=== PATIENT | male | born 1965 | race Caucasian/White ===

== ENCOUNTER 2017-12-09 14:29 | Inpatient (IN) | payer MEDICARE, MEDICAID ==
--- NOTE | 2017-12-09 14:47 | ED Physician Chart ---
ED Chief Complaint/HPI - Patient Information Date Seen:: 12/09/17 Time Seen:: 14:35 Chief Complaint:: verbally aggressive History of Present Illness:: Patient was reportedly verbally aggressive in his alf facility. He is sent here for medical clearance to [facility]. Historian:: Patient, EMS Review:: Transfer documents Reviewed ED Review of Systems - Review of Systems General/Constitutional: No fever, No chills Skin: No skin lesions Head: No headache Eyes: No loss of vision ENT: No earache Neck: No neck pain, No swelling Cardio Vascular: No chest pain, No palpitations Pulmonary: No SOB GI: No nausea, No vomiting, No diarrhea G/U: No dysuria, No frequency, No hematuria Musculoskeletal: No bone or joint pain Endocrine: No polyuria, No polydipsia Psychiatric: Prior psych history Hematopoietic: No bruising Allergic/Immuno: No urticaria Neurological: No syncope, No focal symptoms ED Past Medical History - Past Medical History Past Medical History: HTN, Asthma/COPD, Seizures, Other (autism; paranoid schizophrenia; anxiety) Family History: None Social History: Non Smoker, Care Facility Surgical History: Hernia Psychiatricy History: Schizophrenia, Other (autism) Medication: Reviewed Family Medical History - Family Member Mother History Unknown: Yes Ethnicity: Non- Living Status: Unknown ED Physical Exam - Physical Examination Other Gen/Cons comments:: Mildly chronically ill-appearing; alert and oriented to the correct year but not the month Head: Atraumatic Eyes: Lids, conjuctiva normal, PERRL Skin: Nl inspection, No rash, No skin lesions, No ecchymosis ENMT: External ears, nose nl, TM canals nl, Nasal exam nl, Lips, teeth, gums nl , Oropharynx nl Neck: No nuchal rigidity Respiratory: Nl effort/Exclusion, Clear to Auscultation Cardio Vascular: RRR, No murmur, gallop, rubs, NL S1 S2 GI: No tenderness/rebounding/guarding, No organomegaly, No hernia, Normal BS's Extremities: No edema Neuro/Psych: No focal deficits ED Labs/Radiology/EKG Results - Radiology Results Results: Abnormal Lab Results 12/09/17 12/09/17 12/09/17 15:08 15:08 15:08 WBC 6.3 RBC 4.33 Hgb 14.1 Hct 41.2 MCV 95.3 MCH 32.7 H MCHC Differential 34.3 RDW 12.0 Plt Count 194 MPV 7.6 Neutrophils % 47.5 Lymphocytes % 34.7 Monocytes % 12.6 H Eosinophils % 2.8 Basophils % 2.4 H Sodium 132 L Potassium 4.2 Chloride 104 Carbon Dioxide 17.0 L Anion Gap 15.2 BUN 13 Creatinine 0.7 Est GFR ( Amer) > 60.0 Est GFR (Non-Af Amer) > 60.0 BUN/Creatinine Ratio 18.6 Glucose 176 H Calcium 9.0 Total Bilirubin 0.3 AST 29 ALT 37 Alkaline Phosphatase 44 Total Protein 6.4 Albumin 3.9 L Globulin 2.5 Albumin/Globulin Ratio 1.6 Triglycerides 538 H Cholesterol 172 LDL Cholesterol Direct 93 HDL Cholesterol 28 TSH 1.20 Valproic Acid 12/09/17 15:30 WBC RBC Hgb Hct MCV MCH MCHC Differential RDW Plt Count MPV Neutrophils % Lymphocytes % Monocytes % Eosinophils % Basophils % Sodium Potassium Chloride Carbon Dioxide Anion Gap BUN Creatinine Est GFR ( Amer) Est GFR (Non-Af Amer) BUN/Creatinine Ratio Glucose Calcium Total Bilirubin AST ALT Alkaline Phosphatase Total Protein Albumin Globulin Albumin/Globulin Ratio Triglycerides Cholesterol LDL Cholesterol Direct HDL Cholesterol TSH Valproic Acid 69.0 - EKG Interpretations Rate & Rhythm: normal sinus rhythm with a rate of 72 [place]: normal axis Comments:: T wave flattening ED Septic Shock - . Is Septic Shock (SBP<90, OR Lactate>4 mmol\L) present?: No ED Reassessment (Disposition) - Reassessment Reassessment Condition:: Unchanged - Diagnosis Diagnosis:: Aggressive behavior; autism; paranoid schizophrenia - Patient Disposition Admitted to:: [facility] Admitting Medical Physician:: Bri Johnson Admitting Psych Physician:: Collin Membreno Condition at Disposition:: Stable, Unchanged
[2017-12-09 15:13] LABS: % BASOPHILS 2.4 % (0.0-2.0); % EOSINOPHILS 2.8 % (0.0-5.0); % LYMPHOCYTES 34.7 % (20.0-50.0); % MONOCYTES 12.6 % (2.0-10.0); % NEUTROPHILS 47.5 % (40.0-80.0); BASOPHILE ABSOLUTE 0.2 Th/cumm (0-0.2); EOSINOPHILE ABSOLUTE 0.2 Th/cmm (0.1-0.4); HEMATOCRIT 41.2 % (41.0-60); HEMOGLOBIN 14.1 gm/dL (12-16); LYMPHOCYTE ABSOLUTE 2.2 Th/cmm (1.5-3.0); MEAN CELL VOLUME 95.3 fl (80-99); MEAN CORPUSCULAR HEMOGLOBIN 32.7 pg (26.0-30.0); MEAN CORPUSCULAR HGB CONC 34.3 pg (28.0-36.0); MEAN PLATELET VOLUME 7.6 fl; MONOCYTE ABSOLUTE 0.8 Th/cmm (0.3-1.0); NEUTROPHILE ABSOLUTE 2.9 Th/cmm (1.8-8.0); PLATELET COUNT 194 Th/cmm (150-400); RED BLOOD COUNT 4.33 Mil/cmm (4.30-5.70); WHITE BLOOD COUNT 6.3 Th/cmm (4.8-10.8)
[2017-12-09 15:38] LABS: ALB/GLOB RATIO 1.6 (1.0-1.8); ALBUMIN 3.9 gm/dL (4.2-5.5); ALKALINE PHOSPHATASE 44 U/L (34-104); ANION GAP 15.2 (7.0-16.0); BILIRUBIN,TOTAL 0.3 mg/dL (0.3-1.0); BUN - UREA NITROGEN 13 mg/dL (7-25); CHLORIDE 104 mEq/L (98-107); CHOLESTEROL 172 mg/dL (<200); CREATININE - SERUM 0.7 mg/dL (0.7-1.3); GFR AFRICAN-AMERICAN > 60.0 ml/min (>90); GFR NON AFRICAN-AMERICAN > 60.0 ml/min; GLUCOSE 176 mg/dL (70-105); HDL -HIGH DENSITY LIPOPROTEIN 28 mg/dL (23-92); POTASSIUM SERUM 4.2 mEq/L (3.5-5.1); SGOT 29 U/L (13-39); SGPT/ALT 37 U/L (7-52); SODIUM SERUM 132 mEq/L (136-145); TOTAL PROTEIN,SERUM 6.4 gm/dL (6.0-8.3); TRIGLYCERIDES 538 mg/dL (<150)
[2017-12-09] MEDS ORDERED: Maalox 30 mL Cup PO PRN (18:33)
[2017-12-09] MEDS ORDERED: Magnesium Hydroxide (MOM) 30 mL UDC PO PRN (18:33)
[2017-12-09] MEDS ORDERED: Non-Formulary Item 1 EA (Albuterol Sulfate [Proair Respiclick] 90 MCG) IH PRN (20:27)
[2017-12-09] MEDS ORDERED: Fleet Enema 135 mL RC PRN (20:29)
[2017-12-09 20:48] VITALS: BP 95/66
[2017-12-09] MEDS: Lactulose 10 Gm/15 mL 30mL UDC PO SCH (21:00)
[2017-12-09] MEDS ORDERED: Non-Formulary Item 1 EA (Lactulose [Lactulose] 10 GM) PO SCH (21:00)
[2017-12-09] MEDS ORDERED: Albuterol Nebulizer 2.5mg/3mL HHN PRN (21:33)
--- NOTE | 2017-12-09 22:36 | History & Physical ---
ADMIT DATE: 12/09/2017 CHIEF COMPLAINT: Agitation and aggressive behavior. HISTORY OF PRESENT ILLNESS: A 52-year-old male with past medical history significant for schizophrenia and autistic disorder, presents from long term after he has increased agitation and aggressive towards the staff. The patient is a poor historian. Denies any medical complaints. PAST MEDICAL HISTORY: The patient has history of COPD, autistic disorder, hypertension, seizure disorder, paranoid schizophrenia, and anxiety disorder. MEDICATIONS: The patient is on albuterol, atenolol, benazepril, clozapine, Colace, Depakote, Dulcolax, famotidine, lactulose, milk of magnesia, Mylanta, Tylenol as needed. ALLERGIES: The patient allergic to CARROTS, PENICILLIN AND HALOPERIDOL. SOCIAL HISTORY: No known tobacco, alcohol or illicit drug use. The patient is a resident of [facility]. FAMILY HISTORY: Noncontributory. REVIEW OF SYSTEMS: IMMUNOLOGIC: No recurrent infection. CARDIOVASCULAR: The patient has hypertension. GASTROINTESTINAL: Denies nausea, vomiting or diarrhea. ENDOCRINE: No diabetes or thyroid disorder. NEUROLOGIC: The patient has cognitive impairments. Has seizure disorder. No stroke. HEMATOLOGIC: No bleeding or clotting disorder. PHYSICAL EXAMINATION: GENERAL: The patient is awake and alert, no acute distress. The patient has leftward gaze. HEENT: Pupils equally round, anicteric sclerae. Mouth: The patient has multiple cavities and poor dentition. NECK: Supple. No JVD, mass or bruit. LUNGS: Clear to auscultation. HEART: S1, S2. Regular rate and rhythm. ABDOMEN: Soft, nontender, positive bowel sounds. EXTREMITIES: No clubbing, cyanosis, or edema. NEUROLOGIC: The patient moves all extremities equally. He appears to have visual impairment with difficulty following with gaze and tracking. Also does not appear to recognize colors, unclear whether it is related to his intellectual impairment. LABORATORY DATA: Sodium is 132, potassium 4.2, glucose 178, triglycerides are 538, albumin is 3.9. IMPRESSION: 1. Paranoid schizophrenia. 2. Anxiety disorder. 3. Autistic disorder. 4. Intellectual impairment. 5. Seizure disorder. 6. Chronic obstructive pulmonary disease. 7. Hypertension. 8. Hypertriglyceridemia. PLAN: The patient has been admitted to Geropsych Unit. We will continue the patient's home medications as far as elevated sugar and triglycerides. We will continue to monitor and rule out diabetes. The patient is medically cleared to participate in activities. JOB# [id number]
[2017-12-10] MEDS ORDERED: BENAZEPRIL HCL 5 MG PO SCH (09:00)
[2017-12-10] MEDS ORDERED: Non-Formulary Item 1 EA (Atenolol [Atenolol] 50 MG) PO SCH (09:00)
[2017-12-10] MEDS: Multivitamin Tab PO SCH (09:03)
--- NOTE | 2017-12-10 13:23 | Psychiatric Evaluation ---
DATE OF SERVICE: PSYCHIATRIC INITIAL EVALUATION AND MENTAL STATUS EXAM PATIENT'S AGE: 52-year-old. SEX: Male. PHYSICIAN: Dr. Membreno. CHIEF COMPLAINT: Agitation and aggressive behavior. HISTORY OF PRESENT ILLNESS: The patient is a 52-year-old male who was transferred from [facility] because of increased agitation and aggressive behavior. The patient has been extremely agitated and has been extremely aggressive. The patient also has been having difficulty with controlling his temper and difficult following staff directions. He also has been easily agitated and irritable and also has been paranoid. Because the staff was not able to handle his behavior, he was transferred to [facility]. PAST PSYCHIATRIC HISTORY: The patient has long history of schizophrenia. PAST MEDICAL HISTORY: The patient has history of muscle wasting as well as hypertension, seizure disorder, COPD, GERD, and autistic spectrum according to the admission report. SOCIAL HISTORY: The patient lives in [facility]. No known alcohol or drug use. No known legal issues or abuse issues. ALLERGIES: HALDOL, PENICILLIN AND CARROTS. MENTAL STATUS EXAMINATION: The patient appears slightly older than stated age. Disheveled. Anxious. Irritable mood. Thought processes are circumstantial with flight of ideas. The patient denies auditory or visual hallucinations, but seems to be suspicious and paranoid. The patient denies any suicidal or homicidal ideations. The patient is alert and oriented to time, place, person, and situation. Intact immediate, recent and remote memories. Poor insight and poor judgment. Seems to be of average intelligence based on his verbal ability. ASSESSMENT: PRIMARY DIAGNOSIS: Chronic paranoid schizophrenia with acute exacerbation. MEDICAL DIAGNOSES: Hypertension. Seizure disorder. Atrophy and muscle wasting. Gastroesophageal reflux disease. Chronic obstructive pulmonary disease. TREATMENT PLAN: We will monitor his behavior and his condition closely. We will work on behavioral modification. Also, we will work on adjusting psychotropic medications. ESTIMATED LENGTH OF STAY: 5-7 days. THE PATIENT'S STRENGTHS AND WEAKNESSES: The patient's strength is not clear at this time except he can return to [facility] and have supportive staff there. Weaknesses is his poor impulse control and agitation and paranoia. AFTER DISCHARGE PLAN: The patient will return to [facility] with plans for outpatient treatment and follow up there. CRITERIA FOR DISCHARGE: Better impulse control and stabilizing psychotropic medications and establish outpatient treatment plans. [facility]# [id number]
[2017-12-10] MEDS: Lactulose 10 Gm/15 mL 30mL UDC PO SCH (20:50)
--- NOTE | 2017-12-10 21:56 | History & Physical ---
ADMIT DATE: PATIENT'S IDENTIFICATION: A 52-year-old male. REQUESTING PHYSICIAN: Dr. Collin Membreno. HISTORY OF PRESENT ILLNESS: A 52-year-old male with significant psychiatric history including autistic disorder, discharged to halfway at [place], has a significant medical problem with COPD, hypertension, seizure disorder, brought into the Emergency Room at [facility] for aggressive behavioral evaluation. After being evaluated, the patient is admitted to the hospital for further treatment. The patient is admitted under Dr. Collin Membreno's care. PAST MEDICAL HISTORY: Remarkable for: 1. Hypertension. 2. Seizure disorder. 3. DJD. 4. Psychotic disorder. 5. Autism. 6. COPD. MEDICATIONS AT HOME: 1. Albuterol. 2. Atenolol. 3. Benazepril. 4. Clonazepam. 5. Depakote. 6. Pepcid. 7. Lactulose. 8. Mylanta. 9. Tylenol. ALLERGIES: THE PATIENT IS ALLERGIC TO PENICILLIN AND HALDOL. SOCIAL HISTORY: The patient resides in a halfway. No history of smoking cigarette, alcohol, or drug use. FAMILY HISTORY: Unavailable. REVIEW OF SYSTEMS: Unable to obtain due to current medical condition. PHYSICAL EXAMINATION: GENERAL: The patient is alert, awake, lying in the bed without any acute distress. VITAL SIGNS: Temperature 98, pulse 74, respiratory rate 18, blood pressure 130/70. HEENT: No facial asymmetry. Normocephalic, atraumatic. Pupils react to light. Tongue was pink and coated. No oral lesion, no exudate. No sinus tenderness. NECK: Supple, no JVD. No hepatojugular reflex. No lymphadenopathy, thyromegaly, or carotid bruit. HEART: Both heart sounds are regular. No S3, no S4, no murmur. CHEST AND LUNGS: Equal in expansion, no expiratory wheezing. ABDOMEN: Soft. No guarding, no rigidity. Liver and spleen palpable. No palpable mass. EXTREMITIES: No edema, no cyanosis. Peripheral pulses are +1. NEUROLOGIC: Alert, awake, follows simple commands. Moving upper and lower extremities without any difficulty. The patient has a significant amount of intellectual impairment noted. AVAILABLE DIAGNOSTIC DATA: Has been reviewed. CLINICAL IMPRESSION: 1. Chronic obstructive pulmonary disease. 2. Seizure disorder. 3. Hypertension. 4. Gastroesophageal reflux disease. 5. Psychotic disorder. 6. Intellectual disability. 7. Hypertriglyceridemia. PLAN: 1. Seizure medication. 2. Seizure precaution. 3. P.r.n. inhalation therapy. 4. Antihypertensive medicine. 5. Symptoms management. 6. General nursing care. 7. Fall precaution. 8. Nutritional support. 9. Psych evaluation and management deferred to psychiatrist. 10. Care plan reviewed and discussed with staff. JOB# [id number]
[2017-12-11] MEDS: Multivitamin Tab PO SCH (08:49)
--- NOTE | 2017-12-11 10:20 | Progress Notes ---
DATE: 12/11/2017 SUBJECTIVE: Chart reviewed and also discussed the patient's condition with the staff and reviewed records and labs. The patient is still severely irritable. The patient also is agitated and still needs redirections. The patient also is still rambling and thought processes are disorganized. Otherwise, the patient is compliant with taking his medications with no side effects of medications. ASSESSMENT: The patient is still psychotic and needs close monitoring. TREATMENT PLAN: Continue to monitor his behavior and his condition closely. Also, continue adjusting psychotropic medications and follow up closely. JOB# [id number]
[2017-12-11] MEDS: Lactulose 10 Gm/15 mL 30mL UDC PO SCH (20:48)
--- NOTE | 2017-12-12 03:23 | Progress Notes ---
DATE: 12/11/2017 SUBJECTIVE: The patient was seen and examined. The patient is lying in the bed. The patient is awake, verbally responsive without any acute distress. Compliant with his medication. The patient remained hemodynamically stable. PHYSICAL EXAMINATION: VITAL SIGNS: Temperature of 97.6, pulse 60, respiratory rate 18, blood pressure 126/82. HEENT: No facial asymmetry. NECK: Supple, no JVD. HEART: Regular. CHEST AND LUNGS: Equal in expansion, no expiratory wheezing. ABDOMEN: Soft. EXTREMITIES: No edema. CLINICAL IMPRESSION: 1. Chronic obstructive pulmonary disease. 2. Seizure disorder. 3. Psychotic disorder. 4. Degenerative joint disease. 5. Hypertension. PLAN: 1. Continue current medication as prescribed. 2. Provide seizure medication and seizure precautions. 3. Antihypertensive medicine 4. Symptoms management. 5. Fall precautions. 6. Nutritional support. 7. Psychiatric evaluation and management deferred to psychiatrist. 8. Care plan reviewed and discussed. JOB# [id number]
[2017-12-12] MEDS: Multivitamin Tab PO SCH (10:58)
[2017-12-12] MEDS: Lactulose 10 Gm/15 mL 30mL UDC PO SCH (20:37)
--- NOTE | 2017-12-13 01:50 | Progress Notes ---
DATE: 12/12/2017 SUBJECTIVE: Chart reviewed and the patient interviewed. Also, discussed the patient's condition with the staff and reviewed records and labs. The patient's affect was slightly brighter. The patient seems to be calmer. The patient is still easily agitated and easily irritable. The patient also is still at times, hitting himself. Otherwise, the patient is easier to redirect him and he is compliant with taking his medications with no side effects. ASSESSMENT: The patient is still irritable and agitated. TREATMENT PLAN: Continue monitoring his behavior and his condition closely. Also, continue adjusting psychotropic medications. Also, continue to work on his irritability and behavioral modification. JOB# [id number]
[2017-12-13] MEDS: Multivitamin Tab PO SCH (15:45)
[2017-12-13] MEDS: Lactulose 10 Gm/15 mL 30mL UDC PO SCH (21:07)
[2017-12-14] MEDS: Multivitamin Tab PO SCH (08:01)
--- NOTE | 2017-12-14 17:32 | Progress Notes ---
DATE: 12/13/2017 SUBJECTIVE: The patient seen and examined. The patient is lying in the bed. No new event. Discussed with nursing staff about their concern. OBJECTIVE: VITAL SIGNS: Temperature 97.6, pulse is 100, respiratory rate is 20, blood pressure 137/80. HEENT: No facial asymmetry. NECK: Supple. No JVD, no hepatojugular reflux lymphadenopathy. HEART: Both heart sounds are regular. CHEST AND LUNGS: Equal in expansion, no expiratory wheezing. ABDOMEN: Soft. No guarding or rigidity. Bowel sounds present and normal. EXTREMITIES: No edema. CLINICAL IMPRESSION: 1. Seizure. 2. Hypertension. 3. Psychiatric disorder. 4. Hyperlipidemia. 5. Chronic obstructive pulmonary disease. 6. Intellectual disability. PLAN: 1. Seizure medication. 2. Seizure precaution. 3. Antihypertensive medicine 4. H2 ke. 5. Psychotic evaluation and management deferred to psychiatrist. 6. General nursing care. 7. Nutritional support. 8. Care plan reviewed and discussed with staff. JOB# [id number]
--- NOTE | 2017-12-14 18:18 | Progress Notes ---
DATE: 12/14/2017 SUBJECTIVE: Chart reviewed and the patient interviewed. Also, discussed the patient's condition with the staff and reviewed records and labs. The patient is still confused and is still forgetful. The patient also still has episodes of yelling and screaming. He also is still restless and he still has difficulty following directions. Otherwise, the patient is compliant with taking his medications with no side effect of medications. ASSESSMENT: The patient is still psychotic and agitated. TREATMENT PLAN: Continue to monitor his behavior and his condition closely and continue adjusting psychotropic medications and followup. JOB# [id number]
--- NOTE | 2017-12-14 19:52 | Progress Notes ---
DATE: SUBJECTIVE: Chart reviewed and the patient interviewed. I also discussed the patient's condition with the staff and reviewed records and labs. The patient is still nervous and tense. The patient also is still agitated and easily irritable. The patient also is interacting with staff and with others. The patient also has difficulty coping. He needs lots of redirections. Otherwise, the patient is compliant with medications with no side effects. ASSESSMENT: The patient is still psychotic and depressed. TREATMENT PLAN: Continue monitoring his behavior and his condition and continue adjusting the psychotropic medications and working on discharge plans. JOB# [id number]
[2017-12-14] MEDS: Lactulose 10 Gm/15 mL 30mL UDC PO SCH (20:23)
[2017-12-15] MEDS: Multivitamin Tab PO SCH (08:33)
--- NOTE | 2017-12-16 23:39 | Discharge Summary ---
DATE OF DISCHARGE: 12/15/2017 FINAL DIAGNOSIS AND PRIMARY DIAGNOSIS: Chronic paranoid schizophrenia with acute exacerbation. REASON FOR HOSPITALIZATION: The patient was admitted to the hospital from [place] because of aggressive behavior and increased agitation and irritability. HOSPITAL COURSE: The patient continued to be irritable and in angry mood. The patient also continued to be suspicious and paranoid with periods of severe aggression. He also was not able to follow discharge instructions and discharge plans. The patient also continued to have episodes of anger. The patient was given Clozaril and the dose adjusted to 50 mg in the morning and 62.5 mg in the evening. Gradually, the patient was less agitated and less irritable and he was easier to follow directions and the patient was discharged from the hospital. Physical exam was basically within normal. AFTER DISCHARGE PLAN: Outpatient treatment and followup will continue as an outpatient in [place] and the patient was accepted back to [place]. EXPECTED OUTCOME AFTER DISCHARGE: Fair if the patient continues to follow up with discharge plans, continued to take his psychotropic medications. [facility]# [id number]
== END 2017-12-15 14:05 | DRG 885 ==
LOC: ER 14:29 → GERO 16:50
PROVIDERS: ADMIT Psychiatry & Neurology Psychiatry; ATTEND Psychiatry & Neurology Psychiatry
DX: F20.0 Paranoid schizophrenia (principal); F79 Unspecified intellectual disabilities; E78.1 Pure hyperglyceridemia; J44.9 Chronic obstructive pulmonary disease, unspecified; I10 Essential (primary) hypertension; F84.0 Autistic disorder; G40.909 Epilepsy, unspecified, not intractable, without status epilepticus; F41.9 Anxiety disorder, unspecified; K21.9 Gastro-esophageal reflux disease without esophagitis; M62.50 Muscle wasting and atrophy, not elsewhere classified, unspecified site; F29 Unspecified psychosis not due to a substance or known physiological condition; Z88.0 Allergy status to penicillin; Z88.8 Allergy status to other drugs, medicaments and biological substances
CPT/HCPCS: 36415-UA; 80053-TC; 80061-TC; 80164-TC; 80342-90; 82948-90; 83036-90; 84443-TC; 85025-TC; 86592-TC; 93005; Z7610

== ENCOUNTER 2018-12-02 14:44 | Inpatient (IN) | payer MEDICARE, BC ==
[2018-12-02 21:58] VITALS: BP 152/98
[2018-12-02] MEDS ORDERED: Maalox 30 mL Cup PO PRN ×2 (22:37)
[2018-12-02] MEDS ORDERED: Fleet Enema 135 mL RC PRN (22:37)
[2018-12-02] MEDS ORDERED: Magnesium Hydroxide (MOM) 30 mL UDC PO PRN (22:37)
[2018-12-02] MEDS ORDERED: Albuterol Nebulizer 2.5mg/3mL HHN PRN (22:37)
[2018-12-03] MEDS ORDERED: Multivitamin Tab PO SCH (09:00)
[2018-12-03] MEDS ORDERED: Fenofibrate, Micronized 134 mg Cap PO SCH ×2 (09:00→21:00)
[2018-12-03] MEDS: Fish Oil 1,000 MG SGL PO SCH (09:48)
--- NOTE | 2018-12-03 14:47 | History & Physical ---
ADMIT DATE: CHIEF COMPLAINT: Agitation. HISTORY OF PRESENTING ILLNESS: A 53-year-old male with past medical history significant for schizophrenia and autism disorder, presents for evaluation of agitation. The patient has been admitted for further treatment and care. The patient is seen in hospital bed. He is awake and able to voice needs; however, he is a poor historian. History is mostly taken from records. The patient appears in no pain or distress. PAST MEDICAL HISTORY: The patient has history of schizophrenia, autism disorder, hypertension, seizure disorder, dyslipidemia, COPD and anxiety. MEDICATIONS: As per reconciliation. ALLERGIES: The patient has allergies to PENICILLIN, HALDOL and CARROTS. SOCIAL HISTORY: No tobacco, alcohol or illicit drug use. FAMILY HISTORY: Noncontributory. REVIEW OF SYSTEMS: IMMUNOLOGIC: No recurrent infection. CARDIOVASCULAR: The patient has hypertension. GASTROINTESTINAL: No nausea, vomiting, diarrhea. ENDOCRINE: No diabetes or thyroid disorder. NEUROLOGIC: The patient has seizure disorder. No stroke. HEMATOLOGIC: No bleeding or clotting disorder. PHYSICAL EXAMINATION: GENERAL: The patient is awake, alert, in no acute distress. VITAL SIGNS: Temperature 95.8, pulse is 95, respirations 20, blood pressure 109/57. HEENT: Pupils equally round, anicteric sclerae. NECK: Supple, no JVD, mass or bruit. LUNGS: Clear to auscultation. HEART: S1, S2 regular rate and rhythm. ABDOMEN: Soft, nontender, positive bowel sounds. EXTREMITIES: No clubbing, cyanosis or edema. BACK: No deformity. NEUROLOGIC: Cranial nerves 2-12 intact. No motor or sensory deficits. ASSESSMENT: 1. Schizophrenia. 2. Autism disorder. 3. Hypertension. 4. Seizure disorder. 5. Chronic obstructive pulmonary disease. 6. Dyslipidemia. PLAN: Continue the patient's present medications. We will check CBC, given the patient is on Clozaril. We will also check the patient's Depakote level. He is medically cleared to participate in activities. JOB# [id number]
--- NOTE | 2018-12-03 17:34 | Psychiatric Evaluation ---
DATE OF SERVICE: 12/03/2018 JUSTIFICATION FOR HOSPITALIZATION: "I don't know why I'm here." HISTORY OF PRESENT ILLNESS: A 53-year-old male with history of schizophrenia, possible developmental disability, noted to be coming from [place], aggressive, hitting himself, yelling, some verbal outbursts. Staff has to be careful around him. When he came last night, he was still upset, hitting self, yelling. On [id number], the patient is confused. He believes the month is September. When I tell him it is November, he ruminates on it being in September and gets upset with me. Not really answering any questions. He is pretty disoriented. PAST PSYCHIATRIC HISTORY: As noted. SOCIAL HISTORY: Unclear, not answering any questions, mostly fixated on the month being September. MEDICAL HISTORY: Please see full H and P. It is unclear what his level of family support is. The patient is not telling me where he lives. He originally is coming from a rehab facility. MENTAL STATUS EXAMINATION: Stated age. Fair eye contact. Speech within normal limits. Mood "okay." Affect flat. Thought processes were impoverished. No overt SI or HI. No overt psychotic symptoms. Poor impulse control. PROVISIONAL DIAGNOSES: Schizophrenia per documentation; mood, unspecified; anxiety, unspecified. Concerns for history of developmental disability. MEDICAL: Please see full H and P. ESTIMATED LENGTH OF STAY: 7-10 days. ASSESSMENT: The patient requiring hospitalization, agitated, aggressive, self-harming. CONDITIONS FOR DISCHARGE: Improved mood, improved affect, better control of any agitation. PLAN: To adjust his medications. TREATMENT PLAN: Includes group as well as milieu therapy. JOB# [id number]
[2018-12-03] MEDS ORDERED: Lactulose 10 Gm/15 mL 30mL UDC PO SCH (21:00)
--- NOTE | 2018-12-04 08:46 | General Progress Note ---
Subjective - Review of Systems Service Date: 12/04/18 Subjective: resting comfortably no distress Objective - Physical Exam Vitals and I&O: Vital Signs Temp 97.6 F 12/03/18 20:00 Pulse 64 12/03/18 20:00 Resp 18 12/03/18 20:00 BP 110/66 12/03/18 20:00 Pulse Ox 97 12/03/18 20:00 Intake & Output 12/03/18 12/04/18 12/04/18 18:59 06:59 18:59 Intake Total 1300 120 Balance 1300 120 Intake: Oral 1300 120 Other: # Voids 4 2 # Bowel Movements 0 0 Active Medications: Current Medications Acetaminophen (Tylenol) 650 mg PO Q4HR PRN PRN Reason: Mild Pain / Temp above 100 Stop: 01/31/19 22:36 Albuterol Sulfate (Albuterol 2.5mg/3ml Neb Ud) 2.5 mg HHN Q4H PRN PRN Reason: Shortness of Breath Stop: 01/31/19 22:36 Atenolol (Tenormin) 50 mg PO DAILY [facility] Stop: 02/01/19 08:59 Last Admin: 12/03/18 09:50 Dose: 50 mg Benazepril HCl (Lotensin) 5 mg PO DAILY [facility] Stop: 02/01/19 08:59 Last Admin: 12/03/18 09:48 Dose: Not Given Bisacodyl (Dulcolax 10 Mg Supp) 10 mg RC DAILY PRN PRN Reason: Constipation Stop: 01/31/19 22:36 Clozapine (Clozaril) 50 mg PO BID [facility]; Protocol Stop: 02/01/19 08:59 Divalproex Sodium (Depakote Er) 500 mg PO DAILY [facility]; Protocol Stop: 02/01/19 08:59 Divalproex Sodium (Depakote Er) 1,000 mg PO HS [facility]; Protocol Stop: 02/01/19 20:59 Last Admin: 12/03/18 21:07 Dose: 1,000 mg Docusate Sodium (Colace) 100 mg PO BID [facility] Stop: 02/01/19 08:59 Last Admin: 12/03/18 16:50 Dose: 100 mg Famotidine (Pepcid) 20 mg PO DAILY [facility] Stop: 02/01/19 08:59 Last Admin: 12/03/18 09:49 Dose: 20 mg Fenofibrate (Tricor) 48 mg PO HS [facility] Stop: 02/01/19 20:59 Fish Oil ([place] 3) 1,000 mg PO DAILY [facility] Stop: 02/01/19 08:59 Last Admin: 12/03/18 09:48 Dose: 1,000 mg Risperidone (Risperdal) 0.5 mg PO BID [facility]; Protocol Stop: 02/01/19 08:59 General: No acute distress HEENT: Atraumatic Neck: Supple, JVD Cardiovascular: Regular rate, Normal S1, Normal S2 Lungs: Clear to auscultation Abdomen: Bowel sounds, Soft Assessment/Plan - Assessment Assessment: SCHIZOPHRENIA SEIZURE D/O HTN DYSLIPIDEMIA - Plan Plan: continue current treatment
[2018-12-04] MEDS: Fish Oil 1,000 MG SGL PO SCH (09:56)
[2018-12-05] MEDS: Fish Oil 1,000 MG SGL PO SCH (08:59)
--- NOTE | 2018-12-05 18:11 | General Progress Note ---
Subjective - Review of Systems Service Date: 12/05/18 Subjective: resting comfortably no distress Objective - Physical Exam Vitals and I&O: Vital Signs Temp 97.2 F 12/05/18 06:41 Pulse 66 12/05/18 09:04 Resp 18 12/05/18 08:00 BP 110/76 12/05/18 09:04 Pulse Ox 97 12/05/18 06:41 Intake & Output 12/04/18 12/05/18 12/05/18 18:59 06:59 18:59 Intake Total 1720 120 950 Balance 1720 120 950 Intake: Oral 1720 120 950 Other: # Voids 4 3 4 # Bowel Movements 0 1 Active Medications: Current Medications Acetaminophen (Tylenol) 650 mg PO Q4HR PRN PRN Reason: Mild Pain / Temp above 100 Stop: 01/31/19 22:36 Albuterol Sulfate (Albuterol 2.5mg/3ml Neb Ud) 2.5 mg HHN Q4H PRN PRN Reason: Shortness of Breath Stop: 01/31/19 22:36 Atenolol (Tenormin) 50 mg PO DAILY [facility] Stop: 02/01/19 08:59 Last Admin: 12/05/18 09:04 Dose: 50 mg Benazepril HCl (Lotensin) 5 mg PO DAILY [facility] Stop: 02/01/19 08:59 Last Admin: 12/05/18 09:02 Dose: 5 mg Bisacodyl (Dulcolax 10 Mg Supp) 10 mg RC DAILY PRN PRN Reason: Constipation Stop: 01/31/19 22:36 Clozapine (Clozaril) 50 mg PO BID [facility]; Protocol Stop: 02/01/19 08:59 Last Admin: 12/05/18 17:24 Dose: 50 mg Divalproex Sodium (Depakote Er) 500 mg PO DAILY [facility]; Protocol Stop: 02/01/19 08:59 Last Admin: 12/05/18 08:59 Dose: 500 mg Divalproex Sodium (Depakote Er) 1,000 mg PO HS [facility]; Protocol Stop: 02/01/19 20:59 Last Admin: 12/04/18 21:45 Dose: 1,000 mg Docusate Sodium (Colace) 100 mg PO BID [facility] Stop: 02/01/19 08:59 Last Admin: 12/05/18 17:24 Dose: 100 mg Famotidine (Pepcid) 20 mg PO DAILY [facility] Stop: 02/01/19 08:59 Last Admin: 12/05/18 08:59 Dose: 20 mg Fenofibrate (Tricor) 48 mg PO HS [facility] Stop: 02/01/19 20:59 Fish Oil ([place] 3) 1,000 mg PO DAILY [facility] Stop: 02/01/19 08:59 Last Admin: 12/05/18 08:59 Dose: 1,000 mg Risperidone (Risperdal) 0.5 mg PO BID [facility]; Protocol Stop: 02/01/19 08:59 Last Admin: 12/05/18 17:24 Dose: 0.5 mg General: No acute distress HEENT: Atraumatic Neck: Supple, JVD Cardiovascular: Regular rate, Normal S1, Normal S2 Lungs: Clear to auscultation Abdomen: Bowel sounds, Soft Assessment/Plan - Assessment Assessment: SCHIZOPHRENIA SEIZURE D/O HTN DYSLIPIDEMIA - Plan Plan: continue current treatment
--- NOTE | 2018-12-05 19:20 | Progress Notes ---
DATE: 12/04/2018 SUBJECTIVE: The patient in the hospital, still impulsive, unpredictable, not really answering questions right now, does not want to be bothered, tells me to go away, does not really know why he is in the hospital, concerns about his behaviors. Still noted by staff to be unruly, concerns he may strike out. Medications were noted. Vitals were reviewed. PLAN: We will continue to monitor closely, try to increase collateral. JOB# [id number]
--- NOTE | 2018-12-05 23:31 | Progress Notes ---
DATE: 12/05/2018 SUBJECTIVE: The patient in the hospital, history of apparent schizophrenia, developmental disability, was sitting and yelling, verbal outbursts, still does not really know why he is here. Ruminates on getting a peanut butter and jelly sandwich, juice, not really answering most questions today, somewhat confused about why he is here, withdrawn, depressed, mostly keeps to self, ongoing concerns about poor impulse control, concerns he may strike out at others, fair sleep, fair appetite. PLAN: We will continue to monitor ongoing concerns, he may strike out. Continue dosing of Clozaril, Depakote. Consider dose titration. JOB# [id number]
[2018-12-06] MEDS: Fish Oil 1,000 MG SGL PO SCH (09:00)
--- NOTE | 2018-12-06 20:00 | General Progress Note ---
Subjective - Review of Systems Service Date: 12/06/18 Subjective: resting comfortably no distress Objective - Physical Exam Vitals and I&O: Vital Signs Temp 97.4 F 12/06/18 14:00 Pulse 74 12/06/18 14:00 Resp 20 12/06/18 14:00 BP 112/88 12/06/18 14:00 Pulse Ox 96 12/06/18 14:00 Intake & Output 12/06/18 12/06/18 12/07/18 06:59 18:59 06:59 Intake Total 120 800 Balance 120 800 Intake: Oral 120 800 Other: # Voids 1 3 # Bowel Movements 1 0 Active Medications: Current Medications Acetaminophen (Tylenol) 650 mg PO Q4HR PRN PRN Reason: Mild Pain / Temp above 100 Stop: 01/31/19 22:36 Albuterol Sulfate (Albuterol 2.5mg/3ml Neb Ud) 2.5 mg HHN Q4H PRN PRN Reason: Shortness of Breath Stop: 01/31/19 22:36 Atenolol (Tenormin) [address] [facility] Stop: 02/01/19 08:59 Last Admin: 12/06/18 09:02 Dose: Not Given Benazepril HCl (Lotensin) [address] [facility] Stop: 02/01/19 08:59 Last Admin: 12/06/18 09:01 Dose: Not Given Bisacodyl (Dulcolax 10 Mg Supp) 10 mg RC DAILY PRN PRN Reason: Constipation Stop: 01/31/19 22:36 Clozapine (Clozaril) [address] [facility]; Protocol Stop: 02/01/19 08:59 Last Admin: 12/06/18 16:36 Dose: 50 mg Divalproex Sodium (Depakote Er) 500 mg PO DAILY [facility]; Protocol Stop: 02/01/19 08:59 Last Admin: 12/06/18 09:00 Dose: 500 mg Divalproex Sodium (Depakote Er) 1,000 mg PO HS [facility]; Protocol Stop: 02/01/19 20:59 Last Admin: 12/05/18 21:16 Dose: 1,000 mg Docusate Sodium (Colace) 100 mg PO BID [facility] Stop: 02/01/19 08:59 Last Admin: 12/06/18 16:36 Dose: 100 mg Famotidine (Pepcid) [address] [facility] Stop: 02/01/19 08:59 Last Admin: 12/06/18 09:00 Dose: 20 mg Fenofibrate (Tricor) [address] [facility] Stop: 02/01/19 20:59 Fish Oil ([place] 3) 1,000 mg PO DAILY [facility] Stop: 02/01/19 08:59 Last Admin: 12/06/18 09:00 Dose: 1,000 mg Risperidone (Risperdal) 0.[address] [facility]; Protocol Stop: 02/01/19 08:59 Last Admin: 12/06/18 16:36 Dose: 0.5 mg General: No acute distress HEENT: Atraumatic Neck: Supple, JVD Cardiovascular: Regular rate, Normal S1, Normal S2 Lungs: Clear to auscultation Abdomen: Bowel sounds, Soft Assessment/Plan - Assessment Assessment: SCHIZOPHRENIA SEIZURE D/O HTN DYSLIPIDEMIA - Plan Plan: continue current treatment Nutritional Asmnt/Malnutr-PDOC - Dietary Evaluation Malnutrition Findings (Please click <Entered> for more info): Nutritional Asmnt/Malnutrition Start: 12/06/18 13: 51 Text: Status: Active Freq: Protocol: Document 12/06/18 13:51 MIN (Rec: 12/06/18 13:54 MIN [email or web address]) Nutritional Asmnt/Malnutrition Patient General Information Nutritional Screening Moderate Risk Diagnosis Psychosis Pertinent Medical Hx/Surgical Hx Schizophrenia, autism disorder , HTN, Seizure disorder, dyslipidemia, COPD, anxiety Subjective Information Pt is a 53-year-old male admitted on 12/02 d/t evaluation of agitation. Pt is eating 90% of meals Per Meal/ Nutrition Activity Record. Dietary is currently providing an estimated 1580 kcals and 83 gm Pro, per Pt PO intake this is providing an estimated 1418 kcals and 75gm Pro to meet 97% kcal and 100+% Pro needs- adequate. HT: 61 WT: 160 LB (72.73 kg) BMI: 21.11 (Normal) GI: WNL, Soft, Non-tender, Large BM: 12/06 x1 I/O: 1070/Not Noted Skin: WNL, Intact Mukesh: 17 Diet Order: Na2Gm, NCS Estimated Energy Needs: (Adult , CBW) 6086-5508 kcals (20-25 kcals/ kg) 58-65g Pro (0.8-0.9 g/kg) 0173-3529 ml (25-30 ml/kg) Current Diet Order/ Nutrition Support Na2Gm, NCS Pertinent Medications Albuterol (PRN), Dulcolax (PRN ), Colace, Pepcid, Tricor, [place] 3 Pertinent Labs No labs to report Nutritional Hx/Data Height 1.85 m Height (Calculated Centimeters) 185.4 Current Weight (lbs) 72.575 kg Weight (Calculated Kilograms) 72.6 Weight (Calculated Grams) 77958.8 [place] Body Weight 184 LB (83.64 kg) % [place] Body Weight 87 Body Mass Index (BMI) 21.1 Weight Status Approriate GI Symptoms GI Symptoms None Last BM 12/06 x1 Skin Integrity/Comment: Skin: WNL, Intact Mukesh: 17 Current %PO Good (75-100%) Estimated Nutritional Goals BEE in Kcals: Using Current wt Calories/Kcals/Kg 20-25 Kcals Calculated 0104-1907 Protein: Using Current wt Protein g/k.8-0.9 Protein Calculated 58-65 Fluid: ml 5152-5829 ml (25-30 ml/kg) Nutritional Problem No current Nutrition Prob Problem No nutrition diagnosis at this time. Etiology N/A Signs/Symptoms: N/A Malnutrition Related to Morbid Obesity Malnutrition related to morbid obesity No Intervention/Recommendation Comments Continue with Na2Gm, NCS diet as ordered. Expected Outcomes/Goals Expected Outcomes/Goals 1. PO intake to continue to meet >75% of nutritional needs . 2. Monitor PO intake, wt, nutrition related labs, and skin integrity. 3. F/U as low risk in 7-10 days, 12/13-12/16
--- NOTE | 2018-12-07 00:35 | Progress Notes ---
DATE: 12/06/2018 SUBJECTIVE: The patient is AO to name, does not know where he is, ruminative, some confusion noted, irritable, mostly withdrawn, depressed appearing coming from [facility], ongoing concerns, concerns about outbursts, aggressive behaviors. Medications were noted. We will continue to monitor. Concerns that he may act out upon his impulses strike out. MEDICATIONS: Reviewed. JOB# [id number]
[2018-12-07] MEDS: Fish Oil 1,000 MG SGL PO SCH (09:06)
--- NOTE | 2018-12-07 20:23 | General Progress Note ---
Subjective - Review of Systems Service Date: 12/07/18 Subjective: resting comfortably no distress Objective - Physical Exam Vitals and I&O: Vital Signs Temp 97.3 F 12/07/18 14:00 Pulse 66 12/07/18 14:00 Resp 18 12/07/18 14:00 BP 90/55 12/07/18 14:00 Pulse Ox 96 12/07/18 14:00 Intake & Output 12/07/18 12/07/18 12/08/18 06:59 18:59 06:59 Intake Total 60 1200 Balance 60 1200 Intake: Oral 60 1200 Other: # Voids 3 4 # Bowel Movements 0 0 Active Medications: Current Medications Acetaminophen (Tylenol) 650 mg PO Q4HR PRN PRN Reason: Mild Pain / Temp above 100 Stop: 01/31/19 22:36 Albuterol Sulfate (Albuterol 2.5mg/3ml Neb Ud) 2.5 mg HHN Q4H PRN PRN Reason: Shortness of Breath Stop: 01/31/19 22:36 Atenolol (Tenormin) 50 mg PO DAILY [facility] Stop: 02/01/19 08:59 Last Admin: 12/07/18 09:06 Dose: 50 mg Benazepril HCl (Lotensin) 5 mg PO DAILY [facility] Stop: 02/01/19 08:59 Last Admin: 12/07/18 09:05 Dose: 5 mg Bisacodyl (Dulcolax 10 Mg Supp) 10 mg RC DAILY PRN PRN Reason: Constipation Stop: 01/31/19 22:36 Clozapine (Clozaril) 50 mg PO DAILY [facility]; Protocol Stop: 02/06/19 08:59 Clozapine (Clozaril) 75 mg PO HS [facility]; Protocol Stop: 02/05/19 20:59 Divalproex Sodium (Depakote Er) 500 mg PO DAILY [facility]; Protocol Stop: 02/01/19 08:59 Last Admin: 12/07/18 09:05 Dose: 500 mg Divalproex Sodium (Depakote Er) 1,000 mg PO HS [facility]; Protocol Stop: 02/01/19 20:59 Last Admin: 12/06/18 21:07 Dose: 1,000 mg Docusate Sodium (Colace) 100 mg PO BID [facility] Stop: 02/01/19 08:59 Last Admin: 12/07/18 16:46 Dose: 100 mg Famotidine (Pepcid) 20 mg PO DAILY [facility] Stop: 02/01/19 08:59 Last Admin: 12/07/18 09:05 Dose: 20 mg Fenofibrate (Tricor) 48 mg PO HS [facility] Stop: 02/01/19 20:59 Fish Oil ([place] 3) 1,000 mg PO DAILY [facility] Stop: 02/01/19 08:59 Last Admin: 12/07/18 09:06 Dose: 1,000 mg Risperidone (Risperdal) 0.5 mg PO BID [facility]; Protocol Stop: 02/01/19 08:59 Last Admin: 12/07/18 16:46 Dose: 0.5 mg General: No acute distress HEENT: Atraumatic Neck: Supple, JVD Cardiovascular: Regular rate, Normal S1, Normal S2 Lungs: Clear to auscultation Abdomen: Bowel sounds, Soft Assessment/Plan - Assessment Assessment: SCHIZOPHRENIA SEIZURE D/O HTN DYSLIPIDEMIA - Plan Plan: continue current treatment Nutritional Asmnt/Malnutr-PDOC - Dietary Evaluation Malnutrition Findings (Please click <Entered> for more info): Nutritional Asmnt/Malnutrition Start: 12/06/18 13: 51 Text: Status: Active Freq: Protocol: Document 12/06/18 13:51 MIN (Rec: 12/06/18 13:54 MIN [email or web address]) Nutritional Asmnt/Malnutrition Patient General Information Nutritional Screening Moderate Risk Diagnosis Psychosis Pertinent Medical Hx/Surgical Hx Schizophrenia, autism disorder , HTN, Seizure disorder, dyslipidemia, COPD, anxiety Subjective Information Pt is a 53-year-old male admitted on 12/02 d/t evaluation of agitation. Pt is eating 90% of meals Per Meal/ Nutrition Activity Record. Dietary is currently providing an estimated 1580 kcals and 83 gm Pro, per Pt PO intake this is providing an estimated 1418 kcals and 75gm Pro to meet 97% kcal and 100+% Pro needs- adequate. HT: 61 WT: 160 LB (72.73 kg) BMI: 21.11 (Normal) GI: WNL, Soft, Non-tender, Large BM: 12/06 x1 I/O: 1070/Not Noted Skin: WNL, Intact Mukesh: 17 Diet Order: Na2Gm, NCS Estimated Energy Needs: (Adult , CBW) 1769-5321 kcals (20-25 kcals/ kg) 58-65g Pro (0.8-0.9 g/kg) 2982-9468 ml (25-30 ml/kg) Current Diet Order/ Nutrition Support Na2Gm, NCS Pertinent Medications Albuterol (PRN), Dulcolax (PRN ), Colace, Pepcid, Tricor, [place] 3 Pertinent Labs No labs to report Nutritional Hx/Data Height 1.85 m Height (Calculated Centimeters) 185.4 Current Weight (lbs) 72.575 kg Weight (Calculated Kilograms) 72.6 Weight (Calculated Grams) 84413.8 [place] Body Weight 184 LB (83.64 kg) % [place] Body Weight 87 Body Mass Index (BMI) 21.1 Weight Status Approriate GI Symptoms GI Symptoms None Last BM 12/06 x1 Skin Integrity/Comment: Skin: WNL, Intact Mukesh: 17 Current %PO Good (75-100%) Estimated Nutritional Goals BEE in Kcals: Using Current wt Calories/Kcals/Kg 20-25 Kcals Calculated 3950-3531 Protein: Using Current wt Protein g/k.8-0.9 Protein Calculated 58-65 Fluid: ml 5894-4442 ml (25-30 ml/kg) Nutritional Problem No current Nutrition Prob Problem No nutrition diagnosis at this time. Etiology N/A Signs/Symptoms: N/A Malnutrition Related to Morbid Obesity Malnutrition related to morbid obesity No Intervention/Recommendation Comments Continue with Na2Gm, NCS diet as ordered. Expected Outcomes/Goals Expected Outcomes/Goals 1. PO intake to continue to meet >75% of nutritional needs . 2. Monitor PO intake, wt, nutrition related labs, and skin integrity. 3. F/U as low risk in 7-10 days, 12/13-12/16
--- NOTE | 2018-12-07 22:00 | Progress Notes ---
DATE: 12/07/2018 SUBJECTIVE: The patient in the hospital, ruminative, ongoing confusional state. Does not really know where he is or what is going on. Still bizarre, asking for food, mostly keeps to self. ASSESSMENT: The patient remains symptomatic, withdrawn, depressed, mostly keeps to self. No episodes of yelling, calmer. PLAN: We will continue to monitor. Medications were reviewed. [facility]# [id number]
[2018-12-08] MEDS: Fish Oil 1,000 MG SGL PO SCH (09:59)
--- NOTE | 2018-12-08 20:22 | Progress Notes ---
DATE: 12/08/2018 SUBJECTIVE: The patient currently in the hospital, very depressed, isolative, withdrawn. States he is depressed, states he is down, making some bizarre comments. States that he feels hopeless at times, mostly keeps to self. I increased his dosing of Clozaril. MEDICATIONS: Noted. PLAN: We will continue to monitor. I will stop his dosing of Risperdal given his Clozaril dosing. JOB# [id number]
[2018-12-09] MEDS: Fish Oil 1,000 MG SGL PO SCH (09:26)
--- NOTE | 2018-12-09 14:46 | General Progress Note ---
Subjective - Review of Systems Service Date: 12/08/18 Subjective: resting comfortably no distress Objective - Physical Exam Vitals and I&O: Vital Signs Temp 96.9 F 12/09/18 14:00 Pulse 65 12/09/18 14:00 Resp 20 12/09/18 14:00 BP 126/76 12/09/18 14:00 Pulse Ox 97 12/09/18 14:00 Intake & Output 12/08/18 12/09/18 12/09/18 18:59 06:59 18:59 Intake Total 1200 120 Balance 1200 120 Intake: Oral 1200 120 Other: # Voids 4 3 # Bowel Movements 1 Stool Characteristics Soft Formed Active Medications: Current Medications Acetaminophen (Tylenol) 650 mg PO Q4HR PRN PRN Reason: Mild Pain / Temp above 100 Stop: 01/31/19 22:36 Albuterol Sulfate (Albuterol 2.5mg/3ml Neb Ud) 2.5 mg HHN Q4H PRN PRN Reason: Shortness of Breath Stop: 01/31/19 22:36 Atenolol (Tenormin) 50 mg PO DAILY [facility] Stop: 02/01/19 08:59 Last Admin: 12/09/18 09:27 Dose: 50 mg Benazepril HCl (Lotensin) 5 mg PO DAILY [facility] Stop: 02/01/19 08:59 Last Admin: 12/09/18 09:26 Dose: 5 mg Bisacodyl (Dulcolax 10 Mg Supp) 10 mg RC DAILY PRN PRN Reason: Constipation Stop: 01/31/19 22:36 Clozapine (Clozaril) 50 mg PO DAILY [facility]; Protocol Stop: 02/06/19 08:59 Last Admin: 12/09/18 09:26 Dose: 50 mg Clozapine (Clozaril) 75 mg PO HS [facility]; Protocol Stop: 02/05/19 20:59 Last Admin: 12/08/18 20:34 Dose: 75 mg Divalproex Sodium (Depakote Er) 500 mg PO DAILY [facility]; Protocol Stop: 02/01/19 08:59 Last Admin: 12/09/18 09:26 Dose: 500 mg Divalproex Sodium (Depakote Er) 1,000 mg PO HS [facility]; Protocol Stop: 02/01/19 20:59 Last Admin: 12/08/18 20:34 Dose: 1,000 mg Docusate Sodium (Colace) 100 mg PO BID [facility] Stop: 02/01/19 08:59 Last Admin: 12/09/18 09:27 Dose: 100 mg Famotidine (Pepcid) 20 mg PO DAILY [facility] Stop: 02/01/19 08:59 Last Admin: 12/09/18 09:26 Dose: 20 mg Fenofibrate (Tricor) 48 mg PO HS [facility] Stop: 02/01/19 20:59 Fish Oil ([place] 3) 1,000 mg PO DAILY [facility] Stop: 02/01/19 08:59 Last Admin: 12/09/18 09:26 Dose: 1,000 mg General: No acute distress HEENT: Atraumatic Neck: Supple, JVD Cardiovascular: Regular rate, Normal S1, Normal S2 Lungs: Clear to auscultation Abdomen: Bowel sounds, Soft Assessment/Plan - Assessment Assessment: SCHIZOPHRENIA SEIZURE D/O HTN DYSLIPIDEMIA - Plan Plan: continue current treatment Nutritional Asmnt/Malnutr-PDOC - Dietary Evaluation Malnutrition Findings (Please click <Entered> for more info): Nutritional Asmnt/Malnutrition Start: 12/06/18 13: 51 Text: Status: Active Freq: Protocol: Document 12/06/18 13:51 MIN (Rec: 12/06/18 13:54 MIN [email or web address]) Nutritional Asmnt/Malnutrition Patient General Information Nutritional Screening Moderate Risk Diagnosis Psychosis Pertinent Medical Hx/Surgical Hx Schizophrenia, autism disorder , HTN, Seizure disorder, dyslipidemia, COPD, anxiety Subjective Information Pt is a 53-year-old male admitted on 12/02 d/t evaluation of agitation. Pt is eating 90% of meals Per Meal/ Nutrition Activity Record. Dietary is currently providing an estimated 1580 kcals and 83 gm Pro, per Pt PO intake this is providing an estimated 1418 kcals and 75gm Pro to meet 97% kcal and 100+% Pro needs- adequate. HT: 61 WT: 160 LB (72.73 kg) BMI: 21.11 (Normal) GI: WNL, Soft, Non-tender, Large BM: 12/06 x1 I/O: 1070/Not Noted Skin: WNL, Intact Mukesh: 17 Diet Order: Na2Gm, NCS Estimated Energy Needs: (Adult , CBW) 4963-3235 kcals (20-25 kcals/ kg) 58-65g Pro (0.8-0.9 g/kg) 8525-8633 ml (25-30 ml/kg) Current Diet Order/ Nutrition Support Na2Gm, NCS Pertinent Medications Albuterol (PRN), Dulcolax (PRN ), Colace, Pepcid, Tricor, [place] 3 Pertinent Labs No labs to report Nutritional Hx/Data Height 1.85 m Height (Calculated Centimeters) 185.4 Current Weight (lbs) 72.575 kg Weight (Calculated Kilograms) 72.6 Weight (Calculated Grams) 94062.8 [place] Body Weight 184 LB (83.64 kg) % [place] Body Weight 87 Body Mass Index (BMI) 21.1 Weight Status Approriate GI Symptoms GI Symptoms None Last BM 12/06 x1 Skin Integrity/Comment: Skin: WNL, Intact Mukesh: 17 Current %PO Good (75-100%) Estimated Nutritional Goals BEE in Kcals: Using Current wt Calories/Kcals/Kg 20-25 Kcals Calculated 1594-1026 Protein: Using Current wt Protein g/k.8-0.9 Protein Calculated 58-65 Fluid: ml 3269-4328 ml (25-30 ml/kg) Nutritional Problem No current Nutrition Prob Problem No nutrition diagnosis at this time. Etiology N/A Signs/Symptoms: N/A Malnutrition Related to Morbid Obesity Malnutrition related to morbid obesity No Intervention/Recommendation Comments Continue with Na2Gm, NCS diet as ordered. Expected Outcomes/Goals Expected Outcomes/Goals 1. PO intake to continue to meet >75% of nutritional needs . 2. Monitor PO intake, wt, nutrition related labs, and skin integrity. 3. F/U as low risk in 7-10 days, 12/13-12/16
--- NOTE | 2018-12-09 14:47 | General Progress Note ---
Subjective - Review of Systems Service Date: 12/09/18 Subjective: resting comfortably no distress Objective - Physical Exam Vitals and I&O: Vital Signs Temp 96.9 F 12/09/18 14:00 Pulse 65 12/09/18 14:00 Resp 20 12/09/18 14:00 BP 126/76 12/09/18 14:00 Pulse Ox 97 12/09/18 14:00 Intake & Output 12/08/18 12/09/18 12/09/18 18:59 06:59 18:59 Intake Total 1200 120 Balance 1200 120 Intake: Oral 1200 120 Other: # Voids 4 3 # Bowel Movements 1 Stool Characteristics Soft Formed Active Medications: Current Medications Acetaminophen (Tylenol) 650 mg PO Q4HR PRN PRN Reason: Mild Pain / Temp above 100 Stop: 01/31/19 22:36 Albuterol Sulfate (Albuterol 2.5mg/3ml Neb Ud) 2.5 mg HHN Q4H PRN PRN Reason: Shortness of Breath Stop: 01/31/19 22:36 Atenolol (Tenormin) 50 mg PO DAILY FRANK Stop: 02/01/19 08:59 Last Admin: 12/09/18 09:27 Dose: 50 mg Benazepril HCl (Lotensin) 5 mg PO DAILY FRANK Stop: 02/01/19 08:59 Last Admin: 12/09/18 09:26 Dose: 5 mg Bisacodyl (Dulcolax 10 Mg Supp) 10 mg RC DAILY PRN PRN Reason: Constipation Stop: 01/31/19 22:36 Clozapine (Clozaril) 50 mg PO DAILY FRANK; Protocol Stop: 02/06/19 08:59 Last Admin: 12/09/18 09:26 Dose: 50 mg Clozapine (Clozaril) 75 mg PO HS FRANK; Protocol Stop: 02/05/19 20:59 Last Admin: 12/08/18 20:34 Dose: 75 mg Divalproex Sodium (Depakote Er) 500 mg PO DAILY FRANK; Protocol Stop: 02/01/19 08:59 Last Admin: 12/09/18 09:26 Dose: 500 mg Divalproex Sodium (Depakote Er) 1,000 mg PO HS FRANK; Protocol Stop: 02/01/19 20:59 Last Admin: 12/08/18 20:34 Dose: 1,000 mg Docusate Sodium (Colace) 100 mg PO BID FRANK Stop: 02/01/19 08:59 Last Admin: 12/09/18 09:27 Dose: 100 mg Famotidine (Pepcid) 20 mg PO DAILY FRANK Stop: 02/01/19 08:59 Last Admin: 12/09/18 09:26 Dose: 20 mg Fenofibrate (Tricor) 48 mg PO HS FRANK Stop: 02/01/19 20:59 Fish Oil ([place] 3) 1,000 mg PO DAILY FRANK Stop: 02/01/19 08:59 Last Admin: 12/09/18 09:26 Dose: 1,000 mg General: No acute distress HEENT: Atraumatic Neck: Supple, JVD Cardiovascular: Regular rate, Normal S1, Normal S2 Lungs: Clear to auscultation Abdomen: Bowel sounds, Soft Assessment/Plan - Assessment Assessment: SCHIZOPHRENIA SEIZURE D/O HTN DYSLIPIDEMIA - Plan Plan: continue current treatment Nutritional Asmnt/Malnutr-PDOC - Dietary Evaluation Malnutrition Findings (Please click <Entered> for more info): Nutritional Asmnt/Malnutrition Start: 12/06/18 13: 51 Text: Status: Active Freq: Protocol: Document 12/06/18 13:51 MIN (Rec: 12/06/18 13:54 MIN [email or web address]) Nutritional Asmnt/Malnutrition Patient General Information Nutritional Screening Moderate Risk Diagnosis Psychosis Pertinent Medical Hx/Surgical Hx Schizophrenia, autism disorder , HTN, Seizure disorder, dyslipidemia, COPD, anxiety Subjective Information Pt is a 53-year-old male admitted on 12/02 d/t evaluation of agitation. Pt is eating 90% of meals Per Meal/ Nutrition Activity Record. Dietary is currently providing an estimated 1580 kcals and 83 gm Pro, per Pt PO intake this is providing an estimated 1418 kcals and 75gm Pro to meet 97% kcal and 100+% Pro needs- adequate. HT: 61 WT: 160 LB (72.73 kg) BMI: 21.11 (Normal) GI: WNL, Soft, Non-tender, Large BM: 12/06 x1 I/O: 1070/Not Noted Skin: WNL, Intact Mukesh: 17 Diet Order: Na2Gm, NCS Estimated Energy Needs: (Adult , CBW) 7934-6029 kcals (20-25 kcals/ kg) 58-65g Pro (0.8-0.9 g/kg) 1760-0808 ml (25-30 ml/kg) Current Diet Order/ Nutrition Support Na2Gm, NCS Pertinent Medications Albuterol (PRN), Dulcolax (PRN ), Colace, Pepcid, Tricor, [place] 3 Pertinent Labs No labs to report Nutritional Hx/Data Height 1.85 m Height (Calculated Centimeters) 185.4 Current Weight (lbs) 72.575 kg Weight (Calculated Kilograms) 72.6 Weight (Calculated Grams) 69337.8 [place] Body Weight 184 LB (83.64 kg) % [place] Body Weight 87 Body Mass Index (BMI) 21.1 Weight Status Approriate GI Symptoms GI Symptoms None Last BM 12/06 x1 Skin Integrity/Comment: Skin: WNL, Intact Mukesh: 17 Current %PO Good (75-100%) Estimated Nutritional Goals BEE in Kcals: Using Current wt Calories/Kcals/Kg 20-25 Kcals Calculated 5009-8605 Protein: Using Current wt Protein g/k.8-0.9 Protein Calculated 58-65 Fluid: ml 6237-1710 ml (25-30 ml/kg) Nutritional Problem No current Nutrition Prob Problem No nutrition diagnosis at this time. Etiology N/A Signs/Symptoms: N/A Malnutrition Related to Morbid Obesity Malnutrition related to morbid obesity No Intervention/Recommendation Comments Continue with Na2Gm, NCS diet as ordered. Expected Outcomes/Goals Expected Outcomes/Goals 1. PO intake to continue to meet >75% of nutritional needs . 2. Monitor PO intake, wt, nutrition related labs, and skin integrity. 3. F/U as low risk in 7-10 days, 12/13-12/16
--- NOTE | 2018-12-09 18:17 | Progress Notes ---
DATE: 12/09/2018 SUBJECTIVE: The patient in the hospital, coming from [place], was apparently hitting himself, yelling, outbursts, ongoing concerns, still mostly withdrawn, keeps to self, not wanting to engage with me this morning, opens his eyes then closes them, goes back to sleep, requiring a lot of assistance. Ongoing concerns for impulsivity still with episodes of yelling at times, mostly withdrawn, isolative, keeps to self, depressed appearing, confused as to why he is here. Medications were noted. Vitals were reviewed. PLAN: We will continue to monitor, titrate dosing of Clozaril slowly. JOB# [id number]
[2018-12-09] MEDS: Fenofibrate, Micronized 134 mg Cap PO SCH (20:47)
[2018-12-10] MEDS: Fish Oil 1,000 MG SGL PO SCH (09:05)
[2018-12-10] MEDS: Fenofibrate, Micronized 134 mg Cap PO SCH (21:34)
--- NOTE | 2018-12-11 09:06 | Progress Notes ---
DATE: 12/10/2018 SUBJECTIVE: The patient was seen and evaluated. The patient's chart reviewed. This is Dr. Renee covering for Dr. Sutton. IDENTIFYING DATA: A 53-year-old male with a history of schizophrenia, possible developmental delay. He was ____ aggressive to himself, yelling, verbal outburst. CURRENT MEDICATION REGIMEN: Includes Lotensin; Tenormin; Clozaril 75 mg at bedtime, 50 mg in the morning; Depakote 500 p.o. b.i.d. and 500 mg at nighttime, a total of 1500 mg a day; fenofibrate. Today on [id number] evaluation every answer that he gives is, "I want a peanut butter sandwich." He is mostly been isolating, withdrawn. Needs a lot of redirection to maintain a simple conversation as he mostly preoccupied and yelling that he wants a peanut butter sandwich and refusing interview overall. ASSESSMENT AND PLAN: Schizophrenia. We will continue with the recent titration of the Clozaril. He denies any chest pain or palpitations. No oversedation or drooling reported by the patient. JOB# [id number]
[2018-12-11] MEDS: Fish Oil 1,000 MG SGL PO SCH (09:46)
--- NOTE | 2018-12-11 14:09 | General Progress Note ---
Subjective - Review of Systems Service Date: 12/11/18 Subjective: resting comfortably no distress Objective - Physical Exam Vitals and I&O: Vital Signs Temp 97.2 F 12/11/18 06:03 Pulse 74 12/11/18 09:45 Resp 19 12/11/18 06:03 BP 129/78 12/11/18 09:45 Pulse Ox 97 12/11/18 06:03 Intake & Output 12/10/18 12/11/18 12/11/18 18:59 06:59 18:59 Intake Total 1200 360 Output Total 2 Balance 1200 358 Intake: Oral 1200 360 Output: Urine/Stool Mix 2 Other: # Voids 1 # Bowel Movements 1 Active Medications: Current Medications Acetaminophen (Tylenol) 650 mg PO Q4HR PRN PRN Reason: Mild Pain / Temp above 100 Stop: 01/31/19 22:36 Albuterol Sulfate (Albuterol 2.5mg/3ml Neb Ud) 2.5 mg HHN Q4H PRN PRN Reason: Shortness of Breath Stop: 01/31/19 22:36 Atenolol (Tenormin) 50 mg PO DAILY FRANK Stop: 02/01/19 08:59 Last Admin: 12/11/18 09:44 Dose: 50 mg Benazepril HCl (Lotensin) 5 mg PO DAILY FRANK Stop: 02/01/19 08:59 Last Admin: 12/11/18 09:45 Dose: 5 mg Bisacodyl (Dulcolax 10 Mg Supp) 10 mg RC DAILY PRN PRN Reason: Constipation Stop: 01/31/19 22:36 Clozapine (Clozaril) 50 mg PO DAILY FRANK; Protocol Stop: 02/06/19 08:59 Last Admin: 12/11/18 09:47 Dose: 50 mg Clozapine (Clozaril) 75 mg PO HS FRANK; Protocol Stop: 02/05/19 20:59 Last Admin: 12/10/18 21:34 Dose: 75 mg Divalproex Sodium (Depakote Er) 500 mg PO DAILY FRANK; Protocol Stop: 02/01/19 08:59 Last Admin: 12/11/18 09:44 Dose: 500 mg Divalproex Sodium (Depakote Er) 1,000 mg PO HS FRANK; Protocol Stop: 02/01/19 20:59 Last Admin: 12/10/18 21:35 Dose: 1,000 mg Docusate Sodium (Colace) 100 mg PO BID FRANK Stop: 02/01/19 08:59 Last Admin: 12/11/18 09:46 Dose: 100 mg Famotidine (Pepcid) 20 mg PO DAILY FRANK Stop: 02/01/19 08:59 Last Admin: 12/11/18 09:48 Dose: 20 mg Fenofibrate (Tricor) 134 mg PO HS FRANK Stop: 02/07/19 20:59 Last Admin: 12/10/18 21:34 Dose: 134 mg Fish Oil ([place] 3) 1,000 mg PO DAILY FRANK Stop: 02/01/19 08:59 Last Admin: 12/11/18 09:46 Dose: 1,000 mg General: No acute distress HEENT: Atraumatic Neck: Supple, JVD Cardiovascular: Regular rate, Normal S1, Normal S2 Lungs: Clear to auscultation Abdomen: Bowel sounds, Soft Assessment/Plan - Assessment Assessment: SCHIZOPHRENIA SEIZURE D/O HTN DYSLIPIDEMIA - Plan Plan: continue current treatment Nutritional Asmnt/Malnutr-PDOC - Dietary Evaluation Malnutrition Findings (Please click <Entered> for more info): Nutritional Asmnt/Malnutrition Start: 12/06/18 13: 51 Text: Status: Active Freq: Protocol: Document 12/06/18 13:51 MIN (Rec: 12/06/18 13:54 MIN [email or web address]) Nutritional Asmnt/Malnutrition Patient General Information Nutritional Screening Moderate Risk Diagnosis Psychosis Pertinent Medical Hx/Surgical Hx Schizophrenia, autism disorder , HTN, Seizure disorder, dyslipidemia, COPD, anxiety Subjective Information Pt is a 53-year-old male admitted on 12/02 d/t evaluation of agitation. Pt is eating 90% of meals Per Meal/ Nutrition Activity Record. Dietary is currently providing an estimated 1580 kcals and 83 gm Pro, per Pt PO intake this is providing an estimated 1418 kcals and 75gm Pro to meet 97% kcal and 100+% Pro needs- adequate. HT: 61 WT: 160 LB (72.73 kg) BMI: 21.11 (Normal) GI: WNL, Soft, Non-tender, Large BM: 12/06 x1 I/O: 1070/Not Noted Skin: WNL, Intact Mukesh: 17 Diet Order: Na2Gm, NCS Estimated Energy Needs: (Adult , CBW) 7347-1391 kcals (20-25 kcals/ kg) 58-65g Pro (0.8-0.9 g/kg) 4153-7648 ml (25-30 ml/kg) Current Diet Order/ Nutrition Support Na2Gm, NCS Pertinent Medications Albuterol (PRN), Dulcolax (PRN ), Colace, Pepcid, Tricor, [place] 3 Pertinent Labs No labs to report Nutritional Hx/Data Height 1.85 m Height (Calculated Centimeters) 185.4 Current Weight (lbs) 72.575 kg Weight (Calculated Kilograms) 72.6 Weight (Calculated Grams) 87366.8 [place] Body Weight 184 LB (83.64 kg) % [place] Body Weight 87 Body Mass Index (BMI) 21.1 Weight Status Approriate GI Symptoms GI Symptoms None Last BM 12/06 x1 Skin Integrity/Comment: Skin: WNL, Intact Mukesh: 17 Current %PO Good (75-100%) Estimated Nutritional Goals BEE in Kcals: Using Current wt Calories/Kcals/Kg 20-25 Kcals Calculated 8120-5682 Protein: Using Current wt Protein g/k.8-0.9 Protein Calculated 58-65 Fluid: ml 3569-4355 ml (25-30 ml/kg) Nutritional Problem No current Nutrition Prob Problem No nutrition diagnosis at this time. Etiology N/A Signs/Symptoms: N/A Malnutrition Related to Morbid Obesity Malnutrition related to morbid obesity No Intervention/Recommendation Comments Continue with Na2Gm, NCS diet as ordered. Expected Outcomes/Goals Expected Outcomes/Goals 1. PO intake to continue to meet >75% of nutritional needs . 2. Monitor PO intake, wt, nutrition related labs, and skin integrity. 3. F/U as low risk in 7-10 days, 12/13-12/16
--- NOTE | 2018-12-11 19:06 | Progress Notes ---
DATE: SUBJECTIVE: The patient was seen and evaluated. The patient's chart reviewed. The patient denies any complications, side effects of any medication. The patient continues to perseverate that he needs a peanut butter sandwich and attempt to discuss another conversation, he becomes very angry and starts yelling. ASSESSMENT AND PLAN: The patient who continues to be verbally aggressive and needs a lot of redirection as he continues to perseverate about peanut butter sandwich. We will continue with Clozaril 125 mg if he continues to tolerate well and Depakote. JOB# [id number]
[2018-12-11] MEDS: Fenofibrate, Micronized 134 mg Cap PO SCH (21:14)
[2018-12-12] MEDS: Fish Oil 1,000 MG SGL PO SCH (08:59)
--- NOTE | 2018-12-12 21:21 | General Progress Note ---
Subjective - Review of Systems Service Date: 12/12/18 Subjective: resting comfortably no distress Objective - Physical Exam Vitals and I&O: Vital Signs Temp 98.1 F 12/12/18 20:15 Pulse 78 12/12/18 20:15 Resp 18 12/12/18 20:15 BP 128/76 12/12/18 20:15 Pulse Ox 98 12/12/18 20:15 Intake & Output 12/12/18 12/12/18 12/13/18 06:59 18:59 06:59 Intake Total 300 800 120 Output Total 1 Balance 300 800 119 Intake: Oral 300 800 120 Output: Urine/Stool Mix 1 Other: # Voids 1 3 1 # Bowel Movements 1 0 Active Medications: Current Medications Acetaminophen (Tylenol) 650 mg PO Q4HR PRN PRN Reason: Mild Pain / Temp above 100 Stop: 01/31/19 22:36 Albuterol Sulfate (Albuterol 2.5mg/3ml Neb Ud) 2.5 mg HHN Q4H PRN PRN Reason: Shortness of Breath Stop: 01/31/19 22:36 Atenolol (Tenormin) 50 mg PO DAILY FRANK Stop: 02/01/19 08:59 Last Admin: 12/12/18 08:58 Dose: 50 mg Benazepril HCl (Lotensin) 5 mg PO DAILY FRANK Stop: 02/01/19 08:59 Last Admin: 12/12/18 08:59 Dose: 5 mg Bisacodyl (Dulcolax 10 Mg Supp) 10 mg RC DAILY PRN PRN Reason: Constipation Stop: 01/31/19 22:36 Clozapine (Clozaril) 50 mg PO DAILY FRANK; Protocol Stop: 02/06/19 08:59 Last Admin: 12/12/18 08:59 Dose: 50 mg Clozapine (Clozaril) 100 mg PO HS FRANK; Protocol Stop: 02/10/19 20:59 Divalproex Sodium (Depakote Er) 500 mg PO DAILY FRANK; Protocol Stop: 02/01/19 08:59 Last Admin: 12/12/18 08:58 Dose: 500 mg Divalproex Sodium (Depakote Er) 1,000 mg PO HS FRANK; Protocol Stop: 02/01/19 20:59 Last Admin: 12/11/18 21:13 Dose: 1,000 mg Docusate Sodium (Colace) 100 mg PO BID FRANK Stop: 02/01/19 08:59 Last Admin: 12/12/18 16:35 Dose: 100 mg Famotidine (Pepcid) 20 mg PO DAILY FRANK Stop: 02/01/19 08:59 Last Admin: 12/12/18 09:00 Dose: 20 mg Fenofibrate (Tricor) 134 mg PO HS FRANK Stop: 02/07/19 20:59 Last Admin: 12/11/18 21:14 Dose: 134 mg Fish Oil ([place] 3) 1,000 mg PO DAILY FRANK Stop: 02/01/19 08:59 Last Admin: 12/12/18 08:59 Dose: 1,000 mg General: No acute distress HEENT: Atraumatic Neck: Supple, JVD Cardiovascular: Regular rate, Normal S1, Normal S2 Lungs: Clear to auscultation Abdomen: Bowel sounds, Soft Assessment/Plan - Assessment Assessment: SCHIZOPHRENIA SEIZURE D/O HTN DYSLIPIDEMIA - Plan Plan: continue current treatment Nutritional Asmnt/Malnutr-PDOC - Dietary Evaluation Malnutrition Findings (Please click <Entered> for more info): Nutritional Asmnt/Malnutrition Start: 12/06/18 13: 51 Text: Status: Active Freq: Protocol: Document 12/06/18 13:51 MIN (Rec: 12/06/18 13:54 MIN [email or web address]) Nutritional Asmnt/Malnutrition Patient General Information Nutritional Screening Moderate Risk Diagnosis Psychosis Pertinent Medical Hx/Surgical Hx Schizophrenia, autism disorder , HTN, Seizure disorder, dyslipidemia, COPD, anxiety Subjective Information Pt is a 53-year-old male admitted on 12/02 d/t evaluation of agitation. Pt is eating 90% of meals Per Meal/ Nutrition Activity Record. Dietary is currently providing an estimated 1580 kcals and 83 gm Pro, per Pt PO intake this is providing an estimated 1418 kcals and 75gm Pro to meet 97% kcal and 100+% Pro needs- adequate. HT: 61 WT: 160 LB (72.73 kg) BMI: 21.11 (Normal) GI: WNL, Soft, Non-tender, Large BM: 12/06 x1 I/O: 1070/Not Noted Skin: WNL, Intact Mukesh: 17 Diet Order: Na2Gm, NCS Estimated Energy Needs: (Adult , CBW) 2154-7838 kcals (20-25 kcals/ kg) 58-65g Pro (0.8-0.9 g/kg) 4489-7722 ml (25-30 ml/kg) Current Diet Order/ Nutrition Support Na2Gm, NCS Pertinent Medications Albuterol (PRN), Dulcolax (PRN ), Colace, Pepcid, Tricor, [place] 3 Pertinent Labs No labs to report Nutritional Hx/Data Height 1.85 m Height (Calculated Centimeters) 185.4 Current Weight (lbs) 72.575 kg Weight (Calculated Kilograms) 72.6 Weight (Calculated Grams) 81570.8 [place] Body Weight 184 LB (83.64 kg) % [place] Body Weight 87 Body Mass Index (BMI) 21.1 Weight Status Approriate GI Symptoms GI Symptoms None Last BM 12/06 x1 Skin Integrity/Comment: Skin: WNL, Intact Mukesh: 17 Current %PO Good (75-100%) Estimated Nutritional Goals BEE in Kcals: Using Current wt Calories/Kcals/Kg 20-25 Kcals Calculated 3957-5130 Protein: Using Current wt Protein g/k.8-0.9 Protein Calculated 58-65 Fluid: ml 5089-5642 ml (25-30 ml/kg) Nutritional Problem No current Nutrition Prob Problem No nutrition diagnosis at this time. Etiology N/A Signs/Symptoms: N/A Malnutrition Related to Morbid Obesity Malnutrition related to morbid obesity No Intervention/Recommendation Comments Continue with Na2Gm, NCS diet as ordered. Expected Outcomes/Goals Expected Outcomes/Goals 1. PO intake to continue to meet >75% of nutritional needs . 2. Monitor PO intake, wt, nutrition related labs, and skin integrity. 3. F/U as low risk in 7-10 days, 12/13-12/16
[2018-12-12] MEDS: Fenofibrate, Micronized 134 mg Cap PO SCH (21:28)
--- NOTE | 2018-12-12 23:38 | Progress Notes ---
DATE: 12/12/2018 SUBJECTIVE: The patient remains pretty depressed, down, ongoing melancholy. Concerns for behavioral disturbances, although he has been more depressed as of late, withdrawn, just keeps to self mostly. He is likely approaching his baseline. Dr. Renee is seeing the patient over the weekend, noting he remains perseverative, angry, sometimes yelling. Recent dose titration of Clozaril. PLAN: We will continue to monitor. I will be continuing to increase his dosing of Clozaril to target his agitation, perseverations, poor impulse control. JOB# [id number]
[2018-12-13] MEDS: Fish Oil 1,000 MG SGL PO SCH (08:04)
[2018-12-13] MEDS: Fenofibrate, Micronized 134 mg Cap PO SCH (20:58)
--- NOTE | 2018-12-13 22:02 | General Progress Note ---
Subjective - Review of Systems Service Date: 12/13/18 Subjective: resting comfortably no distress Objective - Physical Exam Vitals and I&O: Vital Signs Temp 97.4 F 12/13/18 19:55 Pulse 70 12/13/18 19:55 Resp 20 12/13/18 19:55 BP 114/68 12/13/18 19:55 Pulse Ox 95 12/13/18 19:55 Intake & Output 12/13/18 12/13/18 12/14/18 06:59 18:59 06:59 Intake Total 180 900 120 Output Total 1 Balance 179 900 120 Intake: Oral 180 900 120 Output: Urine/Stool Mix 1 Other: # Voids 1 3 1 # Bowel Movements 0 1 0 Active Medications: Current Medications Acetaminophen (Tylenol) 650 mg PO Q4HR PRN PRN Reason: Mild Pain / Temp above 100 Stop: 01/31/19 22:36 Last Admin: 12/12/18 21:29 Dose: 650 mg Albuterol Sulfate (Albuterol 2.5mg/3ml Neb Ud) 2.5 mg HHN Q4H PRN PRN Reason: Shortness of Breath Stop: 01/31/19 22:36 Atenolol (Tenormin) 50 mg PO DAILY FRANK Stop: 02/01/19 08:59 Last Admin: 12/13/18 08:06 Dose: Not Given Benazepril HCl (Lotensin) 5 mg PO DAILY FRANK Stop: 02/01/19 08:59 Last Admin: 12/13/18 08:05 Dose: Not Given Bisacodyl (Dulcolax 10 Mg Supp) 10 mg RC DAILY PRN PRN Reason: Constipation Stop: 01/31/19 22:36 Clozapine (Clozaril) 50 mg PO DAILY FRANK; Protocol Stop: 02/06/19 08:59 Last Admin: 12/13/18 08:04 Dose: 50 mg Clozapine (Clozaril) 100 mg PO HS FRANK; Protocol Stop: 02/10/19 20:59 Last Admin: 12/13/18 21:01 Dose: 100 mg Divalproex Sodium (Depakote Er) 500 mg PO DAILY FRANK; Protocol Stop: 02/01/19 08:59 Last Admin: 12/13/18 08:05 Dose: 500 mg Divalproex Sodium (Depakote Er) 1,000 mg PO HS FRANK; Protocol Stop: 02/01/19 20:59 Last Admin: 12/13/18 20:58 Dose: 1,000 mg Docusate Sodium (Colace) 100 mg PO BID FRANK Stop: 02/01/19 08:59 Last Admin: 12/13/18 18:02 Dose: 100 mg Famotidine (Pepcid) 20 mg PO DAILY FRANK Stop: 02/01/19 08:59 Last Admin: 12/13/18 08:04 Dose: 20 mg Fenofibrate (Tricor) 134 mg PO HS FRANK Stop: 02/07/19 20:59 Last Admin: 12/13/18 20:58 Dose: 134 mg Fish Oil ([place] 3) 1,000 mg PO DAILY FRANK Stop: 02/01/19 08:59 Last Admin: 12/13/18 08:04 Dose: 1,000 mg General: No acute distress HEENT: Atraumatic Neck: Supple, JVD Cardiovascular: Regular rate, Normal S1, Normal S2 Lungs: Clear to auscultation Abdomen: Bowel sounds, Soft Assessment/Plan - Assessment Assessment: SCHIZOPHRENIA SEIZURE D/O HTN DYSLIPIDEMIA - Plan Plan: continue current treatment Nutritional Asmnt/Malnutr-PDOC - Dietary Evaluation Malnutrition Findings (Please click <Entered> for more info): Nutritional Asmnt/Malnutrition Start: 12/06/18 13: 51 Text: Status: Active Freq: Protocol: Document 12/06/18 13:51 MIN (Rec: 12/06/18 13:54 MIN [email or web address]) Nutritional Asmnt/Malnutrition Patient General Information Nutritional Screening Moderate Risk Diagnosis Psychosis Pertinent Medical Hx/Surgical Hx Schizophrenia, autism disorder , HTN, Seizure disorder, dyslipidemia, COPD, anxiety Subjective Information Pt is a 53-year-old male admitted on 12/02 d/t evaluation of agitation. Pt is eating 90% of meals Per Meal/ Nutrition Activity Record. Dietary is currently providing an estimated 1580 kcals and 83 gm Pro, per Pt PO intake this is providing an estimated 1418 kcals and 75gm Pro to meet 97% kcal and 100+% Pro needs- adequate. HT: 61 WT: 160 LB (72.73 kg) BMI: 21.11 (Normal) GI: WNL, Soft, Non-tender, Large BM: 12/06 x1 I/O: 1070/Not Noted Skin: WNL, Intact Mukesh: 17 Diet Order: Na2Gm, NCS Estimated Energy Needs: (Adult , CBW) 5919-9859 kcals (20-25 kcals/ kg) 58-65g Pro (0.8-0.9 g/kg) 8162-6477 ml (25-30 ml/kg) Current Diet Order/ Nutrition Support Na2Gm, NCS Pertinent Medications Albuterol (PRN), Dulcolax (PRN ), Colace, Pepcid, Tricor, [place] 3 Pertinent Labs No labs to report Nutritional Hx/Data Height 1.85 m Height (Calculated Centimeters) 185.4 Current Weight (lbs) 72.575 kg Weight (Calculated Kilograms) 72.6 Weight (Calculated Grams) 63739.8 [place] Body Weight 184 LB (83.64 kg) % [place] Body Weight 87 Body Mass Index (BMI) 21.1 Weight Status Approriate GI Symptoms GI Symptoms None Last BM 12/06 x1 Skin Integrity/Comment: Skin: WNL, Intact Mukesh: 17 Current %PO Good (75-100%) Estimated Nutritional Goals BEE in Kcals: Using Current wt Calories/Kcals/Kg 20-25 Kcals Calculated 6783-1326 Protein: Using Current wt Protein g/k.8-0.9 Protein Calculated 58-65 Fluid: ml 4813-9029 ml (25-30 ml/kg) Nutritional Problem No current Nutrition Prob Problem No nutrition diagnosis at this time. Etiology N/A Signs/Symptoms: N/A Malnutrition Related to Morbid Obesity Malnutrition related to morbid obesity No Intervention/Recommendation Comments Continue with Na2Gm, NCS diet as ordered. Expected Outcomes/Goals Expected Outcomes/Goals 1. PO intake to continue to meet >75% of nutritional needs . 2. Monitor PO intake, wt, nutrition related labs, and skin integrity. 3. F/U as low risk in 7-10 days, 12/13-12/16
[2018-12-14] MEDS: Fish Oil 1,000 MG SGL PO SCH (08:33)
--- NOTE | 2018-12-14 20:59 | Progress Notes ---
DATE: 12/13/2018 SUBJECTIVE: The patient in the hospital, very withdrawn, off, currently on a high dose of Clozaril. No aggressive behaviors, seems to be approaching his baseline, calmer, more cooperative, still with some depression, melancholy. No aggressive behaviors, no agitation, no striking out behaviors. Medications were noted. Vitals were reviewed. PLAN: We will monitor for further 24 hours. The patient seems to be approaching his baseline. JOB# [id number]
[2018-12-14] MEDS: Fenofibrate, Micronized 134 mg Cap PO SCH (21:00)
--- NOTE | 2018-12-14 21:44 | General Progress Note ---
Subjective - Review of Systems Service Date: 12/14/18 Subjective: resting comfortably no distress Objective - Physical Exam Vitals and I&O: Vital Signs Temp 97.3 F 12/14/18 20:00 Pulse 71 12/14/18 20:00 Resp 20 12/14/18 20:00 BP 120/76 12/14/18 20:00 Pulse Ox 96 12/14/18 20:00 Intake & Output 12/14/18 12/14/18 12/15/18 06:59 18:59 06:59 Intake Total 240 700 Balance 240 700 Intake: Oral 240 700 Other: # Voids 2 3 # Bowel Movements 0 1 Active Medications: Current Medications Acetaminophen (Tylenol) 650 mg PO Q4HR PRN PRN Reason: Mild Pain / Temp above 100 Stop: 01/31/19 22:36 Last Admin: 12/12/18 21:29 Dose: 650 mg Albuterol Sulfate (Albuterol 2.5mg/3ml Neb Ud) 2.5 mg HHN Q4H PRN PRN Reason: Shortness of Breath Stop: 01/31/19 22:36 Atenolol (Tenormin) 50 mg PO DAILY FRANK Stop: 02/01/19 08:59 Last Admin: 12/14/18 08:32 Dose: 50 mg Benazepril HCl (Lotensin) 5 mg PO DAILY FRANK Stop: 02/01/19 08:59 Last Admin: 12/14/18 08:31 Dose: 5 mg Bisacodyl (Dulcolax 10 Mg Supp) 10 mg RC DAILY PRN PRN Reason: Constipation Stop: 01/31/19 22:36 Clozapine (Clozaril) 50 mg PO DAILY FRANK; Protocol Stop: 02/06/19 08:59 Last Admin: 12/14/18 08:30 Dose: 50 mg Clozapine (Clozaril) 100 mg PO HS FRANK; Protocol Stop: 02/10/19 20:59 Last Admin: 12/14/18 21:00 Dose: 100 mg Divalproex Sodium (Depakote Er) 500 mg PO DAILY FRANK; Protocol Stop: 02/01/19 08:59 Last Admin: 12/14/18 08:32 Dose: 500 mg Divalproex Sodium (Depakote Er) 1,000 mg PO HS FRANK; Protocol Stop: 02/01/19 20:59 Last Admin: 12/14/18 21:00 Dose: 1,000 mg Docusate Sodium (Colace) 100 mg PO BID FRANK Stop: 02/01/19 08:59 Last Admin: 12/14/18 16:29 Dose: 100 mg Famotidine (Pepcid) 20 mg PO DAILY FRANK Stop: 02/01/19 08:59 Last Admin: 12/14/18 08:33 Dose: 20 mg Fenofibrate (Tricor) 134 mg PO HS FRANK Stop: 02/07/19 20:59 Last Admin: 12/14/18 21:00 Dose: 134 mg Fish Oil ([place] 3) 1,000 mg PO DAILY FRANK Stop: 02/01/19 08:59 Last Admin: 12/14/18 08:33 Dose: 1,000 mg General: No acute distress HEENT: Atraumatic Neck: Supple, JVD Cardiovascular: Regular rate, Normal S1, Normal S2 Lungs: Clear to auscultation Abdomen: Bowel sounds, Soft Assessment/Plan - Assessment Assessment: SCHIZOPHRENIA SEIZURE D/O HTN DYSLIPIDEMIA - Plan Plan: continue current treatment Nutritional Asmnt/Malnutr-PDOC - Dietary Evaluation Malnutrition Findings (Please click <Entered> for more info): Nutritional Asmnt/Malnutrition Start: 12/06/18 13: 51 Text: Status: Active Freq: Protocol: Document 12/06/18 13:51 MIN (Rec: 12/06/18 13:54 MIN [email or web address]) Nutritional Asmnt/Malnutrition Patient General Information Nutritional Screening Moderate Risk Diagnosis Psychosis Pertinent Medical Hx/Surgical Hx Schizophrenia, autism disorder , HTN, Seizure disorder, dyslipidemia, COPD, anxiety Subjective Information Pt is a 53-year-old male admitted on 12/02 d/t evaluation of agitation. Pt is eating 90% of meals Per Meal/ Nutrition Activity Record. Dietary is currently providing an estimated 1580 kcals and 83 gm Pro, per Pt PO intake this is providing an estimated 1418 kcals and 75gm Pro to meet 97% kcal and 100+% Pro needs- adequate. HT: 61 WT: 160 LB (72.73 kg) BMI: 21.11 (Normal) GI: WNL, Soft, Non-tender, Large BM: 12/06 x1 I/O: 1070/Not Noted Skin: WNL, Intact Mukesh: 17 Diet Order: Na2Gm, NCS Estimated Energy Needs: (Adult , CBW) 2507-4485 kcals (20-25 kcals/ kg) 58-65g Pro (0.8-0.9 g/kg) 1943-3515 ml (25-30 ml/kg) Current Diet Order/ Nutrition Support Na2Gm, NCS Pertinent Medications Albuterol (PRN), Dulcolax (PRN ), Colace, Pepcid, Tricor, [place] 3 Pertinent Labs No labs to report Nutritional Hx/Data Height 1.85 m Height (Calculated Centimeters) 185.4 Current Weight (lbs) 72.575 kg Weight (Calculated Kilograms) 72.6 Weight (Calculated Grams) 06872.8 [place] Body Weight 184 LB (83.64 kg) % [place] Body Weight 87 Body Mass Index (BMI) 21.1 Weight Status Approriate GI Symptoms GI Symptoms None Last BM 12/06 x1 Skin Integrity/Comment: Skin: WNL, Intact Mukesh: 17 Current %PO Good (75-100%) Estimated Nutritional Goals BEE in Kcals: Using Current wt Calories/Kcals/Kg 20-25 Kcals Calculated 9379-5192 Protein: Using Current wt Protein g/k.8-0.9 Protein Calculated 58-65 Fluid: ml 8301-8453 ml (25-30 ml/kg) Nutritional Problem No current Nutrition Prob Problem No nutrition diagnosis at this time. Etiology N/A Signs/Symptoms: N/A Malnutrition Related to Morbid Obesity Malnutrition related to morbid obesity No Intervention/Recommendation Comments Continue with Na2Gm, NCS diet as ordered. Expected Outcomes/Goals Expected Outcomes/Goals 1. PO intake to continue to meet >75% of nutritional needs . 2. Monitor PO intake, wt, nutrition related labs, and skin integrity. 3. F/U as low risk in 7-10 days, 12/13-12/16
--- NOTE | 2018-12-15 08:27 | Progress Notes ---
DATE: 12/14/2018 SUBJECTIVE: The patient seems to be calmer, less depressed, more awake today, eating on his own, mildly broader affect, seems to be showing some signs and symptoms of improvement. Still mostly keeps to self. Tolerant of current dosing of Clozaril. No longer as agitated. Vitals were noted. Staff noting improvement, calmer, more redirectable. Monitor for further 24 hours with plan to dispo tomorrow. JOB# [id number]
[2018-12-15] MEDS: Fish Oil 1,000 MG SGL PO SCH (09:25)
--- NOTE | 2018-12-15 17:38 | Discharge Summary ---
DATE OF DISCHARGE: 12/15/2018 JUSTIFICATION FOR HOSPITALIZATION: Aggressive hitting self. HISTORY OF PRESENT ILLNESS: A 53-year-old male with history of schizophrenia, possible developmental disability noting to be coming from [place], aggressive, hitting self, yelling, verbal outbursts. Staff had to be careful around him. When he came here he was pretty withdrawn, keeping to self. Ruminating and upset, wanting sandwiches. Keeps asking for sandwiches. PAST PSYCHIATRIC HISTORY: Noted. SOCIAL HISTORY: Coming from [place]. PROVISIONAL DIAGNOSES: Schizophrenia; developmental disability; mood, unspecified. MEDICAL: Please see full H and P. HOSPITAL COURSE: After initial assessment, the patient was started on medications. They were adjusted. Medications were titrated. Clozaril increase, Depakote as well. Over the course of treatment, mood improved, affect improved. He was less ruminative. No longer combative or aggressive. He was somewhat depressed, mostly keeping to self; however, toward the latter end of treatment, his affect was mildly brighter. No combative or agitated behaviors. CONDITION UPON DISCHARGE: Mood "better." Affect constricted. Thought processes were linear. No SI, no HI, no psychotic symptoms, better insight. Staff also noting improvements, still withdrawn, somewhat confused, but not violent or agitated, calm. DISCHARGE DIAGNOSES: Schizophrenia; mood, unspecified developmental disability. MEDICAL: Please see full H and P. PROGNOSIS: The patient follows up with outpatient mental health services, remains compliant with treatment. Prognosis will improve, otherwise guarded. [facility]# [id number]
== END 2018-12-15 14:10 | DRG 885 ==
LOC: GERO 21:06
PROVIDERS: ADMIT Psychiatry & Neurology Psychiatry; ATTEND Psychiatry & Neurology Psychiatry
DX: F20.9 Schizophrenia, unspecified (principal); G40.909 Epilepsy, unspecified, not intractable, without status epilepticus; F39 Unspecified mood [affective] disorder; F41.9 Anxiety disorder, unspecified; F84.0 Autistic disorder; I10 Essential (primary) hypertension; J44.9 Chronic obstructive pulmonary disease, unspecified; E78.5 Hyperlipidemia, unspecified; Z88.0 Allergy status to penicillin; Z91.018 Allergy to other foods
CPT/HCPCS: 97530; X3904; Z7610